=== PATIENT | female | born 1990 | race Caucasian/White ===

== ENCOUNTER 2017-11-14 21:54 | Emergency (ER) | payer BC ==
--- NOTE | 2017-11-14 23:43 | EDM.PDOC ---
ED HPI GENERAL MEDICAL PROBLEM - General Chief Complaint: Upper Extremity Injury/Pain Stated Complaint: CHEST AND ARM PAIN [id number] Time Seen by Provider: 11/14/17 23:15 Source of Information: Reports: Patient History Limitations: Reports: No Limitations - History of Present Illness INITIAL COMMENTS - FREE TEXT/NARRATIVE: c/o sudden onset of sharp apin from left wrist radiating up arm to upper chest pointing along clavicle. No SOB. Lying in bed playing on phone at onset. Pain almost resolved at present. No previous episodes. Onset: Today - Related Data Allergies Allergy/AdvReac Type Severity Reaction Status Date / Time No Known Drug Allergies Allergy Cannot Verified 11/14/17 22:25 Remember Home Meds: Home Meds Escitalopram [Lexapro] 10 mg PO DAILY 11/14/17 [History] Past Medical History Psychiatric History: Reports: Anxiety, Depression Social & Family History - Tobacco Use Smoking Status *Q: Never Smoker - Caffeine Use Caffeine Use: Reports: Soda - Recreational Drug Use Recreational Drug Use: No Review of Systems - Review of Systems Review Of Systems: ROS reveals no pertinent complaints other than HPI. ED EXAM, GENERAL - Physical Exam Exam: See Below Exam Limited By: No Limitations General Appearance: Alert, No Apparent Distress Eye Exam: Bilateral Eye: EOMI Ears: Normal External Exam Nose: Normal Inspection Throat/Mouth: Normal Inspection Head: Atraumatic, Normocephalic Neck: Normal Inspection, Full Range of Motion Respiratory/Chest: No Respiratory Distress, Lungs Clear, Normal Breath Sounds Cardiovascular: Normal Peripheral Pulses, Regular Rate, Rhythm Extremities: Normal Inspection, Normal Range of Motion, Arm Pain (slight tenderness with deep palpation of mid inner forearm). No: Limited Range of Motion, Pallor, Redness Neurological: Alert, Normal Cognition Psychiatric: Anxious Skin Exam: Warm, Dry, Intact, Normal Color Course - Vital Signs Last Recorded V/S: Last Vital Signs Temp 97.5 F 11/14/17 22:24 Pulse 103 H 11/14/17 23:53 Resp 16 11/14/17 23:53 BP 138/88 11/14/17 23:53 Pulse Ox 96 11/14/17 23:53 Departure - Departure Time of Disposition: 23:40 Disposition: Home, Self-Care 01 Condition: Good Clinical Impression: Muscle spasm - Discharge Information Instructions: Carpal Tunnel Syndrome, [id number] Forms: ED Department Discharge, Interfacility Transfer EMTALA Additional Instructions: rest increase fluids follow up if not improving
== END 2017-11-14 23:54 | disposition home or self-care (01) ==
LOC: DL.ED 21:54
DX: M62.838 Other muscle spasm (principal); F32.9 Major depressive disorder, single episode, unspecified; Z79.899 Other long term (current) drug therapy
CPT/HCPCS: 99284

== ENCOUNTER 2019-06-30 21:22 | Inpatient (IN) | payer OTHER ==
[2019-06-30] MEDS: Lactated Ringers 1,000 ML IV SCH (22:25)
[2019-06-30] MEDS ORDERED: Misoprostol 400 MCG (4 X 100 MCG TAB) RECTAL PRN (22:30)
[2019-06-30] MEDS ORDERED: Sodium Chloride 0.9% 10 ML Syringe FLUSH PRN (22:30)
[2019-06-30] MEDS ORDERED: Acetaminophen 325 MG Tab PO PRN (22:30)
[2019-06-30] MEDS ORDERED: Oxytocin/Normal Saline 30 UNIT/500 ML BAG IV SCH ×2 (22:30→23:45)
[2019-06-30] MEDS ORDERED: Lidocaine 1% 30 ML SDV INJECT PRN (22:30)
[2019-06-30] MEDS ORDERED: Carboprost Tromethamine 250 MCG/1 ML Amp IM PRN (22:30)
[2019-06-30] MEDS ORDERED: Lactated Ringers 500 ML IV ONE (22:30)
[2019-06-30] MEDS ORDERED: Methylergonovine 0.2 MG/1 ML Amp IM PRN (22:30)
[2019-06-30] MEDS ORDERED: Tranexamic Acid 1,000 MG in Sodium Chloride 0.9% 100 ML IV PRN (22:30)
[2019-06-30] MEDS ORDERED: EPINEPHrine 1 MG/1 ML Amp ONE ×2 (22:31)
[2019-06-30] MEDS ORDERED: fentaNYL 100 MCG/2 ML SDV ITHECAL ONE ×2 (22:31)
[2019-06-30] MEDS ORDERED: Nalbuphine 10 MG/1 ML Vial IM PRN (23:51)
[2019-06-30] MEDS ORDERED: hydrOXYzine HCl 25 MG Tab PO PRN (23:51)
[2019-07-01] MEDS: Ondansetron 4 MG/2 ML SDV IV PRN ×2 (02:56→07:38)
[2019-07-01] MEDS ORDERED: fentaNYL 100 MCG/2 ML SDV ONE ×3 (03:26→14:11)
[2019-07-01] MEDS ORDERED: EPINEPHrine 1 MG/1 ML Amp ONE ×2 (03:26→07:57)
[2019-07-01] MEDS: Lactated Ringers 1,000 ML IV SCH ×3 (03:40→08:03)
--- NOTE | 2019-07-01 04:26 | PCM.PRNOTE ---
- Free Text/Narrative Note: Requested to provide analgesia to full term patient in severe pain. Upon entering the room, patient is sitting on edge of bed complaining of severe abdominal/pelvic pain and discomfort. Procedure was discussed with patient including adverse outcomes and expectations. Pt consented to analgesia, SAB/ IT. Pt placed into a proper sitting position. Landmarks for SAB/IT were identified and marked. Hands were washed and appropriate PPE was applied. Back was prepped with betadine x3. A sterile, transparent, fenestrated drape was applied. Excess betadine was removed. Using 3 mL of a 1% lidocaine solution , a skin wheel was placed at the L2/L3 interspace. A 24 ga (4 inch) Pencan spinal needle was inserted until positive for CSF. Positive heme but cleared immediately, negative paresthesias but mom did have an anxiety attack when she felt a dural "pop" and began crying saying, "I can't do this". Injected fentanyl 30 mcg, sufentanil 25 mcg, and 7.5 mg of a 0.75% bupivacaine solution with an epi wash. Pt was placed left lateral position for approximately 20 minutes. There were zero complications or adverse outcomes. Will continue to monitor. Procedure Date & Time: 06/30/19 [id number]
--- NOTE | 2019-07-01 08:38 | PCM.PRNOTE ---
- Free Text/Narrative Note: Requested to provide analgesia to full term patient in severe pain. Upon entering the room, patient is sitting on edge of bed complaining of severe abdominal/pelvic pain and discomfort. Procedure was discussed with patient including adverse outcomes and expectations. Pt consented to analgesia, SAB/ IT. Pt placed into a proper sitting position. Landmarks for SAB/IT were identified and marked. Hands were washed and appropriate PPE was applied. Back was prepped with betadine x3. A sterile, transparent, fenestrated drape was applied. Excess betadine was removed. Using 3 mL of a 1% lidocaine solution , a skin wheel was placed at the L2/L3 interspace. A 24 ga (4 inch) Pencan spinal needle was inserted until positive for CSF. Negative for heme or paresthesias. Injected fentanyl 15 mcg, sufentanil 15 mcg, and 7.5 mg of a 0.75 % bupivacaine solution with an epi wash. Pt was placed left lateral position for approximately 20 minutes. There were zero complications or adverse outcomes. Will continue to monitor. Procedure Date & Time:
--- NOTE | 2019-07-01 10:02 | HP ---
PATIENT IDENTIFICATION: Liz Randolph is a 29-year-old, G2, P0-0-1-0, intrauterine at 38 weeks here by 5-1/7 week ultrasound, who presents with leaking of vaginal fluid. HISTORY OF PRESENT ILLNESS: The patient states she started leaking vaginal fluid about 9 p.m. tonight, described as greenish in nature and very copious enough to soak through her clothing, associated with mild cramps felt in the lower abdomen. To put this in context, she has had polyhydramnios and is being followed closely with ultrasounds in regard to this. She is also GBS negative and has impaired glucose tolerance during this and has Rh negative status. Records were called for, reviewed as below, and supplemented by the patient's history. OBSTETRICAL HISTORY: Spontaneous AB on 09/06/2018. ANTEPARTUM LABORATORIES: ABO blood type O negative. Negative antibody. Rubella immune. Syphilis antibody nonreactive. Negative hepatitis B surface antigen. Negative HIV, GC, and Chlamydia. Wet prep within normal limits. One- hour GTT was 158 on 04/25/2019, with 3-hour GTT being negative for gestational diabetes mellitus. Last hemoglobin 10.5 on 04/25/2019. GBS was negative on 06/19/2019. ALLERGIES: Suprax. MEDICATIONS: Fluoxetine, vitamins, and iron. Fluoxetine being 20 mg daily. PAST MEDICAL/PAST SURGICAL HISTORY: Remarkable for adenoidectomy in the past. Tympanostomy tube placement in the past. Sleep study in 2018. Also having acne varioliformis, talipes cavus, and anxiety. SOCIAL HISTORY: No smoking and no alcohol during the . No drug use elicited. 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 FAMILY HISTORY: Breast cancer in mother with mets to bone, and she was a smoker. Depression in sister. High blood pressure in father and mother, as well as lung cancer in father who is a smoker. Half brother had a sleep problem. REVIEW OF SYSTEMS: Otherwise, reviewed and felt to be noncontributory other than the above. PHYSICAL EXAMINATION: Vital Signs: Blood pressure 128/80, heart rate 91, and the patient feels afebrile. Appearance: Female, appears her stated age, acting appropriate for age. Nontoxic appearance. HEENT: Head is atraumatic. EOMs are intact. PERRLA. No scleral icterus. No obvious otorhinorrhea. Mucous membranes are moist. Neck: No obvious tenderness. Lungs: Clear to auscultation bilaterally. No increased work of breathing. Heart: S1 and S2, regular rate and rhythm. Abdomen: Gravid. Joey's indeterminate. Nontender and nondistended. Bowel sounds are positive. No organomegaly, pulsatile masses, or hernias. No rebound, rigidity, or guarding. Genitourinary: Normal external female genitalia. Normal position and presentation of urethra. Copious amounts of greenish-tinged fluid leaking from the vaginal orifice. Vaginal exam reveals her to be 4 cm, 25% to 50% effaced, - 3 station, vertex suspected. Extremities: Trace pedal edema. Deep tendon reflexes are 3 to 4 out of 4 bilaterally and symmetric in the lower extremities. Psychiatric: Mood and affect congruent. Judgment and insight are intact. Skin: Without any cyanosis, clubbing, or jaundice. INVESTIGATIONS: heart tones baseline around the 135 range and felt to be reassuring. Tocometer reveals contractions every 2 to 4 minutes. Pending is a CBC. ASSESSMENT: 1. Intrauterine at 38 weeks by 5-/ week ultrasound. 2. Spontaneous rupture of membranes. 3. Active labor with contractions and cervical change. The patient noting that she was not dilated a couple of weeks ago. 4. Meconium-stained fluid. 5. Group B Streptococcus negative. 6. Impaired glucose tolerance. 7. Rh negative. 8. 2, para 0-0-1-0. PLAN: The patient will be admitted and CBC drawn. We will follow maternal status closely in light of the meconium-stained fluid. If she does not progress into a more active labor pattern and contractions slow down, she may need Pitocin augmentation. Her regular OB doctor, Dr. Mills states that she is in [place], and should be near by soon to manage this patient. At this point in time, we will continue to follow closely and clinically based on the above risk factors. [facility] /[id number]
--- NOTE | 2019-07-01 10:11 | OBOUT ---
DATE: 06/30/2019 TIME: 2214 to 2234. REASON FOR NST: 1. Intrauterine at 38 weeks by 5-/7 week ultrasound. 2. Spontaneous rupture of membranes. 3. Active labor, suspected. 4. Meconium-stained fluid. 5. GBS negative. 6. Impaired glucose tolerance. 7. Rh negative. 8. G2, P0-0-1-0. NST INTERPRETATION: During this time period, heart tone baseline is approximately 130 to 135, and there are at least two 15 x 15 beat per minute accelerations, making this strip reactive. It is also reassuring. Tocometer reveals potential of 4 to 5 contractions during this time period felt by the patient. ASSESSMENT: 1. Nonstress test, reactive and reassuring. 2. Tocometer with contractions. PLAN: Please see admit history and physical for further details. We will continue to follow clinically and closely. [facility] /[id number]
--- NOTE | 2019-07-01 12:05 | PCM.SN ---
- Free Text/Narrative Note: Labor Progress Note S: Patient is doing well, but starting to feel more contractions. O: FHR 130, moderate variability, accelerations present, no decelerations apparent Contractions every 2-3 minutes SVE: complete, -1 A: Complete and starting to feel more contractions. Minimal progression with trial push. P: Labor down Nubain IM
[2019-07-01] MEDS ORDERED: Simethicone 80 MG Tab.Chew PO PRN (15:09)
[2019-07-01] MEDS ORDERED: Sodium Chloride 0.9% 10 ML Syringe FLUSH PRN (15:09)
[2019-07-01] MEDS ORDERED: Oxytocin 10 Units/1 ML SDV IM PRN (15:09)
[2019-07-01] MEDS ORDERED: Benzocaine/Menthol 20%-0.5% Spray 56 GM Canister TOP PRN (15:09)
--- NOTE | 2019-07-01 17:20 | PCM.DEL ---
L & D Note - General Info Date of Service: 07/01/19 ([id number]) Mother's Due Date: 07/14/19 - Delivery Note Labor: Spontaneous Delivery Outcome: Livebirth Delivery Method: Spontaneous Vaginal Delivery-Single (vacuum assisted) Delivery Mode: Vacuum Extraction Presentation: Right Occiput Anterior (PRINCESS) Nuchal Cord: None Anesthesia Type: Intrathecal, Local Anesthetic: Lidocaine (Xylocaine) 1% Plain Local Anesthetic Volume: Other (8 cc) Amniotic Fluid Description: Meconium Stained Episiotomy Type: None Laceration: 2nd Degree Suture type: Vicryl Suture size: 4-0 Placenta: Intact, Spontaneous Cord: 3 Vessels Estimated Blood Loss: 600 : Stimulated Score 1 min: 7 Score 5 min: 8 Second Stage Interventions: Reports: Laboring Down, Pushing, Squat Bar Pulling on Device Delivery Comments (Free Text/Narrative):: Liz is a 29 y/o at 38w1d EGA who presented who presented with spontaneous rupture of membranes around 2100 on 06/30. Fluid was noted to be meconium stained. Category 1 tracing upon admission. She was dilated to 4 cm upon admission. She progressed naturally to 8cm and was comfortable with an intrathecal. Her contractions were about every 2-6 minutes so labor was augmented with pitocin. She was complete at 1050 and began pushing. There was minimal change in position so patient was allowed to labor down. Pushing resumed around 1230. There was still minimal change in position after another hour. Discussed with the patient the risks and benefits of attempting a high vacuum vs continuing to push vs section. Patient was in agreement for vacuum assisted delivery. Vacuum was applied at 1400, a sweep was performed to ensure proper placement and no maternal tissue. During her next contraction the suction was increased the green zone and gentle traction was applied. Baby moved to 0 station then the suction popped off. She continued to push during that contraction. Vacuum was reapplied at 1401, a sweep was performed to ensure proper placement and no maternal tissue. During her next contraction the suction was increased to the green zone and gentle traction was applied. Baby moved to +1 station prior to pop off. Patient continued to push during that contraction. Vacuum was applied for the last time at 1404, a sweep was performed to ensure proper placement and no maternal tissue. During her next contraction the suction was increased to the green zone and gentle traction was applied. Baby moved to +3 station and the suction was manually released. Patient continued to push with that contraction and delivered a liveborn female infant. There was some delay in crying and baby was stimulated, then the cord was clamped and cut and the baby was taken to the warmer for further stimulation. APGARs of 7 and 8. weight 3355g. Placenta delivered spontaneously intact with a 3 vessel cord. IV Pitocin was started shortly after delivery of the placenta. EBL 600 mL. Second degree perineal laceration repaired with 4-0 Vicryl suture. Bilateral labial lacerations were also reapproximated. Hemostasis confirmed. Mother and infant doing well. Vacuum Extractor Progress Note - Alternative Labor Strategies Considered Alternative Labor Strategies Considered:: Reports: Yes Strategies Considered:: Reports: Contraction Intensity Adequate, Position Changes Used to Facilitate Rotation & Descent, Empty Bladder, Rest Indications Considered:: Reports: Yes Indications:: Reports: Prolonged 2nd Stage, Shortening of 2nd Stage for Maternal Benefit Time Out:: Reports: Yes - Patient Prepared Patient Prepared:: Reports: Yes Informed Consent:: Reports: Verbal Risks: Reports: Yes Risks Include:: Reports: Laceration, Shoulder Dystocia, Maternal Injury Anesthesia/Analgesia Adequate:: Reports: Yes - Probability of Success High Probability of Success:: Reports: Yes Weight Estimated:: Reports: AGA Patient Diabetic:: Reports: No Pelvis Adequate:: Reports: Yes Position:: OA Asynclitic:: Reports: No Station:: -2 - Application Time Maximum Application Time & Number of Pop-Offs Predetermined:: Reports: Yes Total Application Time (min): *max=20min: 4 Number of Times Cup Disengaged:: 3 Type of Vacuum Used:: Reports: Cup: Rigid Vacuum Extraction: Successful - Exit Strategy Exit strategy available:: Reports: Yes and resuscitation teams readily available:: Reports: Yes - General Info Date of Service: 07/01/19 ([id number]) Functional Status: Reports: Pain Controlled - Patient Data Vitals - Most Recent: Last Vital Signs Temp 98.1 F 07/01/19 10:08 Pulse 80 07/01/19 10:17 Resp 16 07/01/19 09:16 BP 156/77 H 07/01/19 10:17 Pulse Ox 99 07/01/19 09:22 Weight - Most Recent: 115.666 kg Lab Results Last 24 Hours: Laboratory Results - last 24 hr 06/30/19 Range/Units 22:40 WBC 11.4 H (5.0-10.0) 10^3/uL RBC 3.92 L (4.2-5.4) 10^6/uL Hgb 11.4 L (12.0-16.0) g/dL Hct 34.8 L (37.0-47.0) % MCV 88.8 (80-100) fL MCH 29.1 (27.0-34.0) pg MCHC 32.8 L (33.0-35.0) g/dL Plt Count 294 (150-450) 10^3/uL - Exam General: Alert, Oriented HEENT: Pupils Equal, Pupils Reactive Neck: Supple Lungs: Clear to Auscultation Cardiovascular: Regular Rate GI/Abdominal Exam: Soft Skin: Warm, Dry, Intact - Problem List Review Problem List Initiated/Reviewed/Updated: Yes - Assessment Assessment:: 29 y/o G1 now P1 who delivered a female infant via VAVD at 1405 who is breast feeding and doing well. - Plan Plan:: Plan: Routine cares Encourage breast feeding Will follow closely Janett Mills MD
[2019-07-01] MEDS: Acetaminophen 325 MG Tab PO PRN (18:51)
[2019-07-01] MEDS: Ibuprofen 800 MG Tab PO PRN (18:51)
[2019-07-01] MEDS ORDERED: Escitalopram 10 MG Tab PO SCH (20:00)
[2019-07-01] MEDS ORDERED: Zolpidem 5 MG Tab PO PRN (21:00)
[2019-07-02] MEDS: Ibuprofen 800 MG Tab PO PRN (07:44)
[2019-07-02] MEDS: Docusate Sodium 100 MG Cap PO PRN (07:44)
--- NOTE | 2019-07-02 08:56 | PCM.SN ---
- Free Text/Narrative Note: Post Delivery Day #1 07/02/19 Subjective: Patient is ambulating without assistance and tolerating oral intake. Her pain has been well-controlled, and her bleeding has been minimal. She has not had nausea, vomiting, blurred vision, diarrhea, shortness of breath, or any other complaints. She is . Objective: Vitals stable Gen: No distress CV: Well-perfused, 2+ distal pulses Resp: Non-labored, symmetrical chest expansion Abd: Fundus is firm and below umbilicus. Ext: Moves All Extremities Well, no edema. Assessment: Status post VAVD ( day #1) who is doing well. Plan: - Routine Nursing - vitamin - Encourage breast feeding - Likely discharge tomorrow Janett Mills MD
[2019-07-02] MEDS: Prenatal Multivitamin with Calcium/Folic Acid/Iron Tab PO SCH (09:23)
[2019-07-02] MEDS: FLUoxetine 10 MG Cap PO SCH (09:23)
[2019-07-03] MEDS: Prenatal Multivitamin with Calcium/Folic Acid/Iron Tab PO SCH (09:11)
[2019-07-03] MEDS: Docusate Sodium 100 MG Cap PO PRN (09:11)
[2019-07-03] MEDS: Acetaminophen 325 MG Tab PO PRN ×2 (09:11→17:04)
[2019-07-03] MEDS: FLUoxetine 10 MG Cap PO SCH (09:17)
[2019-07-03] MEDS: Ibuprofen 800 MG Tab PO PRN (17:04)
--- NOTE | 2019-07-04 14:43 | PCM.SN ---
- Free Text/Narrative Note: Progress Note/Discharge Summary Admit date: 06/30/19 Discharge date: 07/03/19 Delivering Physician: Dr. Mills Discharging Physician: Dr. Mills Admission Diagnoses: 29 y/o G1 at 38w0d SROM @ 2100 on 06/30/19 Polyhydramnios Summary of Hospital Course: Liz presented to labor and delivery on 06/30/19. She underwent vacuum assisted vaginal delivery on 07/01/19 and delivered a viable female infant weighing 3335 grams with Apgars of 7 and 8 at 1 and 5 minutes respectively. EBL was 600 mL. The patient had an unremarkable course. By day 2, the patient was doing well; ambulating, voiding, and tolerating general diet. Her pain was well controlled with oral pain medications, and was she was discharged to home. Jb was transported on day 2 of life to the NICU in [place] for respiratory distress. Admission hemoglobin was 11.4 gm/dL. Discharge hemoglobin was 9.2 gm/dL. Discharge Exam: Gen: No distress CV: Well-perfused, 2+ distal pulses Resp: Non-Labored, symmetrical chest expansion Abd: Fundus is firm and below umbilicus. Ext: Moves all extremities well, no edema. Discharge (or Final) Diagnoses: 1. Intrauterine at 38w1d 2. Vacuum Assisted Vaginal Delivery Discharge Details: Admission Condition: good Discharged Condition: good Disposition: Home Discharge Medications: over the counter ibuprofen Diet: regular diet Activity: no heavy lifting for 2 weeks, pelvic rest for 6 weeks. Follow-up with Dr. Mills in 6-8 weeks for visit.
== END 2019-07-03 17:00 | disposition home or self-care (01) | DRG 807 ==
LOC: DL.OBCHECK 21:22 → UNDOADMOB 22:30 → DL.OB 22:30 → INTOOBSV 07-01 14:06 → OBSVTOIN 07-01 14:06
PROVIDERS: ADMIT Family Medicine; ATTEND Family Medicine
PROC: 10D07Z6 Extraction of Products of Conception, Vacuum, Via Natural or Artificial Opening (ICD-10-PCS; principal; 2019-07-01)
PROC: 4A1HXCZ Monitoring of Products of Conception, Cardiac Rate, External Approach (ICD-10-PCS; 2019-07-01)
PROC: 3E0R3BZ Introduction of Anesthetic Agent into Spinal Canal, Percutaneous Approach (ICD-10-PCS; 2019-07-01)
DX: O40.3XX0 Polyhydramnios, third trimester, not applicable or unspecified (principal); O77.0 Labor and delivery complicated by meconium in amniotic fluid; O70.1 Second degree perineal laceration during delivery; Z37.0 Single live birth; Z3A.38 38 weeks gestation of pregnancy
CPT/HCPCS: 36415; 51701; 59409; 85027; A9270-GY; J0171; J2001; J2300; J2405; J2590; J3010; J7120

== ENCOUNTER 2023-05-02 13:16 | Emergency (ER) | payer OTHER ==
[2023-05-02 13:52] LABS: BASOPHILS PERCENT AUTO 0.2 % (0.0-1.0); EOSINOPHILS PERCENT AUTO 0.8 % (1.0-3.0); HEMATOCRIT 38.8 % (37.0-47.0); HEMOGLOBIN 13.2 g/dL (12.0-16.0); LYMPHOCYTES PERCENT AUTO 28.3 % (20.5-50.1); MEAN CORPUSCULAR HEMOGLOBIN 30.5 pg (27.0-34.0); MEAN CORPUSCULAR VOLUME 89.6 fL (80-100); MONOCYTES PERCENT AUTO 5.2 % (2-8); NEUTROPHILS PERCENT AUTO 65.5 % (42.2-75.2); PLATELET COUNT,PLT 371 10^3/uL (150-450); RED BLOOD CELL COUNT 4.33 10^6/uL (4.2-5.4); WHITE BLOOD CELL COUNT,WBC 9.9 10^3/uL (5.0-10.0)
[2023-05-02 14:05] LABS: HCG QUALITATIVE,SERUM NEGATIVE (NEGATIVE)
[2023-05-02 14:08] LABS: LACTIC ACID 1.5 mmol/L (0.4-2.0)
[2023-05-02 14:10] LABS: A/G RATIO 0.9; ALANINE AMINOTRANSFERASE,ALT 34 U/L (14-59); ALBUMIN 3.8 g/dL (3.4-5.0); ALKALINE PHOSPHATASE 86 U/L (46-116); AMYLASE 36 U/L (25-115); ANION GAP 14.7 mEq/L (7-13); ASPARTATE AMNIOTRANSFERASE,AST 17 U/L (15-37); BILIRUBIN TOTAL 0.4 mg/dL (0.2-1.0); BLOOD UREA NITROGEN,BUN 8 mg/dL (7-18); BUN/CREATININE RATIO 12.3 (No establ ref range); C-REACTIVE PROTEIN 1.6 mg/dL (0.0-0.9); CALCIUM 9.1 mg/dL (8.5-10.1); CARBON DIOXIDE,CO2 24 mmol/L (21-32); CHLORIDE,CL 101 mmol/L (98-107); CREATININE 0.65 mg/dL (0.55-1.02); EST CRCL DRUG DOSING (CG) 108.29 mL/min; GLUCOSE RANDOM 138 mg/dL (70-99); LIPASE 172 U/L (73-393); POTASSIUM,K 3.7 mmol/L (3.5-5.1); SODIUM,NA 136 mmol/L (136-145); TSH ULTRASENSITIVE 2.08 uIU/mL (0.36-3.74)
[2023-05-02 14:12] LABS: ESTIMATED GFR 121 mL/min (>=60)
[2023-05-02 14:13] LABS: ETHANOL BLOOD MEDICAL < 3 mg/dL (0)
[2023-05-02 14:23] LABS: APPEARANCE,URINE CLEAR (CLEAR); BILIRUBIN,URINE NEGATIVE (NEGATIVE); COLOR,URINE YELLOW (YELLOW); GLUCOSE,URINE NEGATIVE (NEGATIVE); KETONES,URINE NEGATIVE (NEGATIVE); LEUKOCYTE ESTERASE,URINE TRACE (NEGATIVE); NITRITE,URINE NEGATIVE (NEGATIVE); OCCULT BLOOD,URINE TRACE-INTACT (NEGATIVE); PROTEIN,URINE NEGATIVE (NEGATIVE); UROBILINOGEN,URINE 0.2 mg/dL (0.2-1.0)
[2023-05-02 14:25] LABS: AMPHETAMINES,URINE NEGATIVE (NEGATIVE); BARBITURATES,URINE NEGATIVE (NEGATIVE); BENZODIAZEPINE,URINE NEGATIVE (NEGATIVE); MDMA (ECSTASY), URINE NEGATIVE (NEGATIVE); METHADONE,URINE NEGATIVE (NEGATIVE); METHAMPHETAMINES,URINE NEGATIVE (NEGATIVE); OPIATES,URINE NEGATIVE (NEGATIVE); OXYCODONE,URINE NEGATIVE (NEGATIVE); PHENCYCLIDINE,URINE NEGATIVE (NEGATIVE); TCA,URINE NEGATIVE (NEGATIVE)
[2023-05-02 14:47] LABS: BACTERIA,URINE MODERATE /HPF (0-FEW/HPF); EPITHELIAL CELLS,URINE MODERATE /HPF (NOT SEEN)
[2023-05-02 14:48] LABS: MUCUS,URINE FEW /LPF (NOT SEEN)
[2023-05-02 14:50] LABS: RBC,URINE 0-5 /HPF (0-5); WBC,URINE 0-5 /HPF (0-5/HPF)
[2023-05-02] MEDS ORDERED: Iopamidol 755 Mg/ML 100 ML Bottle IVPUSH ONE (15:13)
[2023-05-02] MEDS ORDERED: GI Cocktail Oral Solution 30 ML PO ONE (15:53)
== END 2023-05-02 16:58 | disposition home or self-care (01) ==
LOC: DL.ED 13:16
DX: R07.89 Other chest pain (principal); R91.1 Solitary pulmonary nodule; Z88.1 Allergy status to other antibiotic agents; Z20.822 Contact with and (suspected) exposure to COVID-19
CPT/HCPCS: 36415; 71045; 71275; 80053; 80305; 80307; 81001; 82150; 83605; 83690; 83735; 84443; 84484; 84703; 85025; 85379; 86140; 87086; 87635; 87804; 93005; 93010; 99284; 99285; A9270; Q9967; U0002